=== PATIENT | female | born 1960 | race Caucasian/White ===

== ENCOUNTER 2022-11-01 06:43 | Day surgery (SDC) | payer MEDICAID ==
[~2022-11-01] VITALS: Ht 157.5 cm; Wt 68.0 kg
[2022-11-01 07:45] VITALS: O2SAT 98
[2022-11-01] MEDS ORDERED: BENZOCAINE 20% 0.5mL UD SPRAY MM ONE (07:48)
[2022-11-01] MEDS ORDERED: SIMETHICONE 40 MG/0.6 ML ML ONE (07:48)
[2022-11-01] MEDS ORDERED: MIDAZOLAM HCL 5 MG/5 ML VIAL ONE ×2 (07:49→08:55)
[2022-11-01] MEDS ORDERED: fentaNYL CITRATE/PF 100 MCG/2 ML AMP ONE (07:49)
[2022-11-01] MEDS ORDERED: MEPERIDINE 100 MG INJ. 100 MG/ML VIAL ONE (08:31)
[2022-11-01 13:33] VITALS: BP_SYST 108; PULSE 70; RESP 20
== END 2022-11-01 10:29 | disposition home or self-care (01) ==
LOC: SDS 06:43 → SMU 06:44 → SDS 10:29
PROVIDERS: ATTEND Internal Medicine
DX: Z12.11 Encounter for screening for malignant neoplasm of colon (principal); K63.5 Polyp of colon; K29.50 Unspecified chronic gastritis without bleeding; K92.0 Hematemesis; K64.8 Other hemorrhoids; Z79.899 Other long term (current) drug therapy
CPT/HCPCS: 45380; 43239; 99152; 99153; 88305; 88312; 88313; J2250; J2175; G0378; 45385; J3010